=== PATIENT | female | born 1955 | race Caucasian/White ===

== ENCOUNTER → 2016-06-08 | Outpatient (REF) | payer MEDICARE ==
[2016-06-08 13:26] LABS: INR 2.46
== END ==
LOC: M SFHCPLAZ 10:57
PROVIDERS: ATTEND Family Medicine
DX: Z79.01 Long term (current) use of anticoagulants (principal)

== ENCOUNTER → 2016-12-05 | Outpatient (CLI) | payer MEDICARE ==
[2016-12-05 10:08] LABS: BASO % 0.4 % (0.0-1.0); EOS # 0.2 K/mm3 (0.0-0.50); EOS % 3.2 % (0.0-3.0); LARGE UNSTAINED CELL # 0.1 K/mm3 (0.0-0.4); LARGE UNSTAINED CELL % 2.2 % (0.0-4.0); LYMPH # 1.7 K/mm3 (1.5-4.5); LYMPH % 25.6 % (24.0-44.0); MEAN CORPUSCULAR HEMOGLOBIN 30.8 pg (27.0-33.0); MEAN CORPUSCULAR HGB CONC 32.5 g/dl (32.0-36.5); MONO # 0.4 K/mm3 (0.0-0.8); MONO % 7.1 % (0.0-5.0); NEUTROPHILS # 3.7 K/mm3 (1.8-7.7); NEUTROPHILS % 61.5 % (36.0-66.0); PLATELET COUNT, AUTOMATED 205 k/mm3 (150-450)
[2016-12-05 10:14] LABS: INR 1.66
[2016-12-05 10:31] LABS: ALBUMIN 3.5 GM/DL (3.2-5.2); ALBUMIN/GLOBULIN RATIO 1.09 (1.00-1.93); ALKALINE PHOSPHATASE 58 U/L (45-117); ALT/SGPT 19 U/L (12-78); ANION GAP 6 MEQ/L (8-16); AST/SGOT 13 U/L (15-37); BILIRUBIN,TOTAL 0.3 MG/DL (0.2-1.0); BLOOD UREA NITROGEN 14 MG/DL (7-18); CALCIUM LEVEL 8.3 MG/DL (8.8-10.2); CARBON DIOXIDE LEVEL 30 MEQ/L (21-32); CHLORIDE LEVEL 107 MEQ/L (98-107); CREATININE FOR GFR 0.68 MG/DL (0.55-1.02); GLOMERULAR FILTRATION RATE > 60.0 (>45); GLUCOSE, FASTING 98 MG/DL (80-110); POTASSIUM SERUM 4.1 MEQ/L (3.5-5.1); SODIUM LEVEL 143 MEQ/L (136-145); TOTAL PROTEIN 6.7 GM/DL (6.4-8.2)
[2016-12-05 11:32] LABS: ERYTHROCYTE SEDIMENTATION RATE 24 mm/hr (0-30)
== END ==
LOC: M WUC 09:11
PROVIDERS: ATTEND Family Medicine
DX: I10 Essential (primary) hypertension (principal); D68.61 Antiphospholipid syndrome; M32.9 Systemic lupus erythematosus, unspecified; R73.01 Impaired fasting glucose

== ENCOUNTER → 2016-12-19 | Outpatient (CLI) | payer MEDICARE ==
[2016-12-19 17:40] LABS: INR 2.75
== END ==
LOC: M WUC 14:46
PROVIDERS: ATTEND Family Medicine
DX: Z79.01 Long term (current) use of anticoagulants (principal)

== ENCOUNTER → 2017-01-02 | Outpatient (CLI) | payer MEDICARE ==
[2017-01-02 17:24] LABS: INR 1.52
== END ==
LOC: M WUC 14:09
PROVIDERS: ATTEND Family Medicine
DX: I48.2 Chronic atrial fibrillation (principal)

== ENCOUNTER → 2017-02-09 | Outpatient (CLI) | payer MEDICARE ==
--- NOTE | 2017-02-09 09:12 | REP ---
MAXILLOFACIAL CT WITHOUT CONTRAST: HISTORY: Chronic pansinusitis. COMPARISON: 03/27/2007. Minimal mucosal thickening is present in the sphenoid sinuses. The remaining sinuses are clear. The ostiomeatal units are patent. There is minimal deviation of the nasal septum to the right. A spur is present arising from the left side of the nasal septum. The cribriform plate, medial turner of the orbits and optic canals are intact. The carotid canals form a segment of the posterolateral turner of the sphenoid sinus. IMPRESSION: Sinus mucosal thickening as described above. Signed by Alberto Ha MD 02/09/2017 09:28 A
== END ==
LOC: M RAD 07:55
PROVIDERS: ATTEND Otolaryngology
DX: J34.89 Other specified disorders of nose and nasal sinuses (principal)

== ENCOUNTER → 2017-03-07 | Outpatient (CLI) | payer MEDICARE ==
--- NOTE | 2017-03-09 00:27 | SLEEPHOME ---
DATE OF PROCEDURE: 03/07/2017 ORDERED BY: Dr. Villafana Diagnostic home sleep testing was performed due to concern for the obstructive sleep apnea syndrome. For testing, a NOX-T3 respiratory monitoring device was used. Continuous record was made of pulse, oxygen saturation, air flow, chest and abdominal strain and body position. 9 hours and 59 minutes of data were reviewed. Of these, 5 hours and 23 minutes were marked as time in bed. During the interval marked time in bed, there were 57 respiratory events identified of 10 seconds in duration or greater for a respiratory event index of 10.6. The events were more frequently obstructive, though 11 central and 3 mixed apneas were seen. Baseline pulse rate 69 beats per minute. Pulse rate ranged as high as 170 beats per minute. Baseline saturation 92%. Lowest oxygen saturation reliably recorded 85%. Testing was performed in both the supine and nonsupine positions. IMPRESSION: Abnormal home sleep testing with repetitive respiratory events and oxygen desaturation to 85% with a respiratory event index of 10.6 is consistent with the obstructive sleep apnea syndrome. RECOMMENDATION: The patient should be encouraged to undergo a formal sleep evaluation and in laboratory pressure titration.
== END ==
LOC: M SLEEP HO 12:28
PROVIDERS: ATTEND Family Medicine
DX: G47.33 Obstructive sleep apnea (adult) (pediatric) (principal)

== ENCOUNTER → 2017-03-23 | Outpatient (CLI) | payer MEDICARE | LOC: M WHC 14:17 | DX: Z12.31 Encounter for screening mammogram for malignant neoplasm of breast (principal); Z80.3 Family history of malignant neoplasm of breast; Z80.0 Family history of malignant neoplasm of digestive organs; Z78.0 Asymptomatic menopausal state | CPT/HCPCS: G0202 ==

== ENCOUNTER → 2017-04-30 | Outpatient (REF) | payer MEDICARE | LOC: M SFHCPLAZ 10:13 | DX: M32.9 Systemic lupus erythematosus, unspecified (principal) | CPT/HCPCS: 36415 ==

== ENCOUNTER → 2017-05-13 | Outpatient (CLI) | payer MEDICARE | LOC: M SLEEP 20:00 | DX: G47.33 Obstructive sleep apnea (adult) (pediatric) (principal) | CPT/HCPCS: 95811 ==

== ENCOUNTER → 2017-07-30 | Outpatient (CLI) | payer MEDICARE ==
[2017-07-30 17:01] LABS: PROTHROMBIN TIME 34.3 SECONDS (12.4-14.5)
[2017-07-30 17:02] LABS: PARTIAL THROMBOPLASTIN TIME 73.6 SECONDS (26.8-37.9)
[2017-07-30 17:03] LABS: APPEARANCE, URINE CLEAR (CLEAR); BACTERIA, URINE AUTO NEGATIVE (NEGATIVE); BILIRUBIN, URINE AUTO NEGATIVE (NEGATIVE); BLOOD, URINE BLOOD NEGATIVE (NEGATIVE); COLOR, URINE YELLOW (YELLOW); ESTIMATED AVERAGE GLUCOSE 114 MG/DL (60-110); GLUCOSE, URINE (UA) AUTO NEGATIVE (NEGATIVE); HEMOGLOBIN A1c 5.6 %; KETONE, URINE AUTO NEGATIVE (NEGATIVE); LEUKOCYTE ESTERASE, URINE AUTO NEGATIVE (NEGATIVE); MUCUS, URINE SMALL (NEGATIVE); NITRITE, URINE AUTO NEGATIVE (NEGATIVE); PROTEIN, URINE AUTO NEGATIVE (NEGATIVE); RBC, URINE AUTO 5 /HPF (0-3); SPECIFIC GRAVITY URINE AUTO 1.018 (1.002-1.035); SQUAMOUS EPITHELIAL CELL UR AU 0 /HPF (0-6); WBC, URINE AUTO 0 /HPF (0-3)
[2017-07-30 17:04] LABS: VITAMIN B12 LEVEL 378 PG/ML (247-911)
[2017-07-30 17:32] LABS: BASO % 0.6 % (0.0-1.0); EOS # 0.1 10^3/uL (0.0-0.50); EOS % 1.1 % (0.0-3.0); HEMATOCRIT 39.1 % (36.0-47.0); HEMOGLOBIN 12.7 g/dl (12.0-15.5); IMMATURE GRANULOCYTE % 0.1 % (0-3.0); LYMPH # 2.1 10^3/uL (1.5-4.5); MEAN CORPUSCULAR HEMOGLOBIN 30.7 pg (27.0-33.0); MEAN CORPUSCULAR HGB CONC 32.5 g/dl (32.0-36.5); MEAN CORPUSCULAR VOLUME 94.4 fl (80.0-96.0); MONO # 0.6 10^3/uL (0.0-0.8); NEUTROPHILS # 4.3 10^3/uL (1.8-7.7); NEUTROPHILS % 60.2 % (36.0-66.0); PLATELET COUNT, AUTOMATED 214 10^3/uL (150-450); RED BLOOD COUNT 4.14 10^6/uL (4.00-5.40); RED CELL DISTRIBUTION WIDTH 13.4 % (11.5-14.5); RETIC HEMOGLOBIN EQUIVALENT 34.3 pg (24-36); RETICULOCYTE # 68.7 10^9/L (17-77); RETICULOCYTE % 1.7 % (0.5-1.5); WHITE BLOOD COUNT 7.1 10^3/uL (4.0-10.0)
[2017-07-30 18:09] LABS: MALB URINE SIEMENS 14.8 MG/L; MAU/CREAT RATIO 12.6 MCG/MG (0.0-30.0)
== END ==
LOC: M WUC 10:45
DX: M32.9 Systemic lupus erythematosus, unspecified (principal); R73.01 Impaired fasting glucose; I10 Essential (primary) hypertension; Z79.01 Long term (current) use of anticoagulants
CPT/HCPCS: 82607

== ENCOUNTER → 2017-09-05 | Outpatient (CLI) | payer MEDICARE ==
[2017-09-05 12:17] LABS: INR 1.31; PROTHROMBIN TIME 16.6 SECONDS (12.4-14.5)
[2017-09-05 12:18] LABS: PARTIAL THROMBOPLASTIN TIME 35.2 SECONDS (26.8-37.9)
== END ==
LOC: M WUC 09:29
DX: D68.61 Antiphospholipid syndrome (principal)
CPT/HCPCS: 85610

== ENCOUNTER → 2017-09-14 | Outpatient (CLI) | payer MEDICARE ==
[2017-09-14 09:41] LABS: BASO % 0.5 % (0.0-1.0); EOS # 0.1 10^3/uL (0.0-0.50); EOS % 1.8 % (0.0-3.0); HEMATOCRIT 39.3 % (36.0-47.0); HEMOGLOBIN 12.7 g/dl (12.0-15.5); IMMATURE GRANULOCYTE % 0.2 % (0-3.0); LYMPH # 1.8 10^3/uL (1.5-4.5); LYMPH % 29.5 % (24.0-44.0); MEAN CORPUSCULAR HEMOGLOBIN 30.4 pg (27.0-33.0); MEAN CORPUSCULAR HGB CONC 32.3 g/dl (32.0-36.5); MONO # 0.6 10^3/uL (0.0-0.8); MONO % 9.4 % (0.0-5.0); NEUTROPHILS # 3.6 10^3/uL (1.8-7.7); NEUTROPHILS % 58.6 % (36.0-66.0); PLATELET COUNT, AUTOMATED 233 10^3/uL (150-450); RED BLOOD COUNT 4.18 10^6/uL (4.00-5.40); RED CELL DISTRIBUTION WIDTH 13.4 % (11.5-14.5); WHITE BLOOD COUNT 6.2 10^3/uL (4.0-10.0)
[2017-09-14 09:56] LABS: ANION GAP 8 MEQ/L (8-16); BLOOD UREA NITROGEN 8 MG/DL (7-18); CALCIUM LEVEL 8.6 MG/DL (8.8-10.2); CARBON DIOXIDE LEVEL 30 MEQ/L (21-32); CHLORIDE LEVEL 105 MEQ/L (98-107); CREATININE FOR GFR 0.69 MG/DL (0.55-1.30); GLOMERULAR FILTRATION RATE > 60.0 (>45); GLUCOSE, FASTING 109 MG/DL (70-100); POTASSIUM SERUM 4.5 MEQ/L (3.5-5.1); SODIUM LEVEL 143 MEQ/L (136-145)
== END ==
LOC: M WUC 08:16
DX: R53.83 Other fatigue (principal)
CPT/HCPCS: 80048

== ENCOUNTER → 2017-09-24 | Outpatient (CLI) | payer MEDICARE ==
[2017-09-24 12:25] LABS: INR 1.28; PROTHROMBIN TIME 16.2 SECONDS (12.1-14.4)
[2017-09-24 12:26] LABS: PARTIAL THROMBOPLASTIN TIME 34.5 SECONDS (25.4-37.6)
== END ==
LOC: M WUC 09:01
DX: I63.9 Cerebral infarction, unspecified (principal)
CPT/HCPCS: 85610

== ENCOUNTER → 2017-10-05 | Outpatient (CLI) | payer MEDICARE ==
[2017-10-05 13:07] LABS: PROTHROMBIN TIME 24.9 SECONDS (12.1-14.4)
[2017-10-05 13:08] LABS: PARTIAL THROMBOPLASTIN TIME 46.7 SECONDS (25.4-37.6)
== END ==
LOC: M WUC 09:04
DX: I63.9 Cerebral infarction, unspecified (principal)
CPT/HCPCS: 85610

== ENCOUNTER → 2017-11-08 | Outpatient (CLI) | payer MEDICARE ==
[2017-11-08 12:49] LABS: BASO % 0.7 % (0.0-1.0); EOS # 0.1 10^3/uL (0.0-0.50); HEMATOCRIT 39.4 % (36.0-47.0); HEMOGLOBIN 12.8 g/dl (12.0-15.5); IMMATURE GRANULOCYTE % 0.3 % (0-3.0); LYMPH # 1.5 10^3/uL (1.5-4.5); LYMPH % 25.5 % (24.0-44.0); MEAN CORPUSCULAR HEMOGLOBIN 30.9 pg (27.0-33.0); MEAN CORPUSCULAR HGB CONC 32.5 g/dl (32.0-36.5); MEAN CORPUSCULAR VOLUME 95.2 fl (80.0-96.0); MONO # 0.6 10^3/uL (0.0-0.8); MONO % 9.5 % (0.0-5.0); NEUTROPHILS # 3.6 10^3/uL (1.8-7.7); PLATELET COUNT, AUTOMATED 202 10^3/uL (150-450); RED BLOOD COUNT 4.14 10^6/uL (4.00-5.40); RED CELL DISTRIBUTION WIDTH 13.3 % (11.5-14.5); RETIC HEMOGLOBIN EQUIVALENT 34.4 pg (24-36); RETICULOCYTE # 62.9 10^9/L (17-77); RETICULOCYTE % 1.5 % (0.5-1.5); WHITE BLOOD COUNT 5.8 10^3/uL (4.0-10.0)
[2017-11-08 13:00] LABS: HEMATOCRIT 39.4 % (36.0-47.0)
[2017-11-08 13:01] LABS: INR 3.45; PROTHROMBIN TIME 35.6 SECONDS (12.1-14.4)
[2017-11-08 13:02] LABS: PARTIAL THROMBOPLASTIN TIME 54.9 SECONDS (25.4-37.6)
[2017-11-08 13:33] LABS: ALBUMIN 3.8 GM/DL (3.2-5.2); ALBUMIN/GLOBULIN RATIO 1.15 (1.00-1.93); ALKALINE PHOSPHATASE 62 U/L (45-117); ALT/SGPT 20 U/L (12-78); ANION GAP 9 MEQ/L (8-16); AST/SGOT 15 U/L (7-37); BILIRUBIN,TOTAL 0.4 MG/DL (0.2-1.0); BLOOD UREA NITROGEN 9 MG/DL (7-18); CALCIUM LEVEL 8.6 MG/DL (8.8-10.2); CARBON DIOXIDE LEVEL 28 MEQ/L (21-32); CHLORIDE LEVEL 106 MEQ/L (98-107); GLOMERULAR FILTRATION RATE > 60.0 (>45); GLUCOSE, FASTING 103 MG/DL (70-100); POTASSIUM SERUM 4.2 MEQ/L (3.5-5.1); SODIUM LEVEL 143 MEQ/L (136-145); TOTAL PROTEIN 7.1 GM/DL (6.4-8.2)
[2017-11-08 14:03] LABS: VITAMIN B12 LEVEL 634 PG/ML (247-911)
[2017-11-08 14:23] LABS: ESTIMATED AVERAGE GLUCOSE 108 MG/DL (60-110); HEMOGLOBIN A1c 5.4 %
[2017-11-09 10:39] LABS: PRETREATED FOLATE FOR RBCFOL 20.9 NG/ML
[2017-11-09 14:46] LABS: INSULIN LEVEL 9.6 uIU/mL (2.6-24.9)
== END ==
LOC: M WUC 10:07
DX: E53.8 Deficiency of other specified B group vitamins (principal); R73.01 Impaired fasting glucose
CPT/HCPCS: 83525

== ENCOUNTER → 2017-12-20 | Outpatient (CLI) | payer MEDICARE ==
[2017-12-20 18:16] LABS: INR 2.74; PROTHROMBIN TIME 29.6 SECONDS (12.1-14.4)
== END ==
LOC: M WUC 15:28
DX: E53.8 Deficiency of other specified B group vitamins (principal); I63.9 Cerebral infarction, unspecified
CPT/HCPCS: 85610

== ENCOUNTER → 2018-01-22 | Outpatient (CLI) | payer MEDICARE ==
[2018-01-22 13:54] LABS: INR 2.29; PROTHROMBIN TIME 25.7 SECONDS (12.1-14.4)
[2018-01-22 13:56] LABS: PARTIAL THROMBOPLASTIN TIME 49.7 SECONDS (25.4-37.6)
== END ==
LOC: M WUC 10:40
DX: D68.61 Antiphospholipid syndrome (principal)
CPT/HCPCS: 85610

== ENCOUNTER → 2018-02-25 | Outpatient (CLI) | payer MEDICARE ==
[2018-02-25 13:00] LABS: INR 1.95; PROTHROMBIN TIME 22.6 SECONDS (12.1-14.4)
[2018-02-25 13:01] LABS: PARTIAL THROMBOPLASTIN TIME 42.8 SECONDS (25.4-37.6)
== END ==
LOC: M WUC 09:57
DX: D68.61 Antiphospholipid syndrome (principal)
CPT/HCPCS: 85610

== ENCOUNTER → 2018-04-08 | Outpatient (CLI) | payer MEDICARE ==
--- NOTE | 2018-04-08 13:58 | REP ---
MRA BRAIN WITHOUT CONTRAST: HISTORY: Right leg weakness. 3D [id number] MR angiography was performed at the level of the [place]. There is no aneurysm or arteriovenous malformation. Mild atherosclerotic disease involves the cavernous and supraclinoid internal carotid arteries. Major intracranial vessels are patent. The left vertebral artery is dominant. IMPRESSION: 1. There is no aneurysm or arteriovenous malformation. 2. Atherosclerotic disease as described above. Electronically Signed by Alberto Ha MD 04/08/2018 02:03 P
--- NOTE | 2018-04-08 14:10 | REP ---
MR BRAIN WITHOUT CONTRAST: HISTORY: Right leg weakness. Areas of increased signal intensity on T2 weighted images are present in the periventricular and subcortical white matter. This represents small vessel ischemic disease. There is no intraparenchymal hemorrhage, infarct, mass, or midline shift. The ventricular system is normal in appearance. The cortical sulci are dilated consistent with minimal volume loss. There is no extracerebral collection. Mucosal thickening is present in the sphenoid sinus. IMPRESSION: 1. Small vessel ischemic disease. 2. Minimal volume loss. Electronically Signed by Alberto Ha MD 04/08/2018 02:11 P
== END ==
LOC: M RAD 12:29
PROVIDERS: ATTEND Family Medicine
DX: R29.898 Other symptoms and signs involving the musculoskeletal system (principal); R90.82 White matter disease, unspecified

== ENCOUNTER → 2018-04-12 | Outpatient (CLI) | payer MEDICARE ==
[2018-04-12 16:46] LABS: BASO % 0.5 % (0.0-1.0); EOS # 0.1 10^3/uL (0.0-0.50); EOS % 1.1 % (0.0-3.0); HEMATOCRIT 36.9 % (36.0-47.0); LYMPH # 2.5 10^3/uL (1.5-4.5); LYMPH % 29.2 % (24.0-44.0); MEAN CORPUSCULAR HEMOGLOBIN 30.5 pg (27.0-33.0); MEAN CORPUSCULAR HGB CONC 32.5 g/dl (32.0-36.5); MEAN CORPUSCULAR VOLUME 93.9 fl (80.0-96.0); MONO # 0.5 10^3/uL (0.0-0.8); MONO % 6.4 % (0.0-5.0); NEUTROPHILS # 5.3 10^3/uL (1.8-7.7); NEUTROPHILS % 62.4 % (36.0-66.0); PLATELET COUNT, AUTOMATED 250 10^3/uL (150-450); RED BLOOD COUNT 3.93 10^6/uL (4.00-5.40); WHITE BLOOD COUNT 8.5 10^3/uL (4.0-10.0)
[2018-04-12 16:49] LABS: ALBUMIN 3.8 GM/DL (3.2-5.2); ALT/SGPT 25 U/L (12-78); BILIRUBIN,TOTAL 0.3 MG/DL (0.2-1.0); BLOOD UREA NITROGEN 14 MG/DL (7-18); CALCIUM LEVEL 8.9 MG/DL (8.8-10.2); CARBON DIOXIDE LEVEL 27 MEQ/L (21-32); CHLORIDE LEVEL 105 MEQ/L (98-107); COMPLEMENT C3 115 MG/DL (90-180); COMPLEMENT C4 26 MG/DL (10-40); CREATININE FOR GFR 0.78 MG/DL (0.55-1.30); GLOMERULAR FILTRATION RATE > 60.0 (>45); GLUCOSE, FASTING 129 MG/DL (70-100); POTASSIUM SERUM 3.7 MEQ/L (3.5-5.1); SODIUM LEVEL 139 MEQ/L (136-145)
[2018-04-12 17:25] LABS: INR 1.67
[2018-04-12 17:26] LABS: PARTIAL THROMBOPLASTIN TIME 41.5 SECONDS (25.4-37.6)
== END ==
LOC: M WUC 14:35
PROVIDERS: ATTEND Family Medicine
DX: M32.9 Systemic lupus erythematosus, unspecified (principal); D68.61 Antiphospholipid syndrome

== ENCOUNTER → 2018-05-21 | Outpatient (CLI) | payer MEDICARE ==
[2018-05-21 17:34] LABS: INR 2.49; PROTHROMBIN TIME 27.4 SECONDS (12.1-14.4)
== END ==
LOC: M WUC 10:56
PROVIDERS: ATTEND Family Medicine
DX: D68.61 Antiphospholipid syndrome (principal)

== ENCOUNTER → 2018-06-27 | Outpatient (REF) | payer MEDICARE ==
[~2018-06-27] MED LIST: AMLO2.5T3 PO; B12-1CHW PO; CLOP75TA2 PO; COSE1INJ SC; HYDR200T3 PO; MULTCHW14 PO; ONDA4TAB5 PO; PANT20TA51 PO; PROP10TA56 PO; ROSU20TA4 PO; VITA-197 PO; WARF-23 PO
[2018-06-27 11:57] LABS: INR 2.26; PROTHROMBIN TIME 25.4 SECONDS (12.1-14.4)
== END ==
LOC: M LABDRAWP 09:11
PROVIDERS: ATTEND Family Medicine
DX: D68.61 Antiphospholipid syndrome (principal)
CPT/HCPCS: 36415; 85610; 85730; G0463

== ENCOUNTER 2018-07-01 21:47 | Observation (INO) | payer MEDICARE ==
[~2018-07-01] VITALS: Ht 165.1 cm; Wt 86.4 kg
[2018-07-01 23:20] VITALS: BP 177/74
[2018-07-02] MEDS ORDERED: NITROGLYCERIN 0.4 MG SUBL TABLET SL STA (00:20)
[2018-07-02 00:50] LABS: HEMATOCRIT 37.1 % (36.0-47.0); MEAN CORPUSCULAR HEMOGLOBIN 30.5 pg (27.0-33.0); MEAN CORPUSCULAR HGB CONC 32.3 g/dl (32.0-36.5); MEAN CORPUSCULAR VOLUME 94.2 fl (80.0-96.0); PLATELET COUNT, AUTOMATED 216 10^3/uL (150-450); RED BLOOD COUNT 3.94 10^6/uL (4.00-5.40); WHITE BLOOD COUNT 7.5 10^3/uL (4.0-10.0)
[2018-07-02] MEDS ORDERED: ROSU20TA4 PO (01:10)
[2018-07-02] MEDS ORDERED: MULTCHW14 PO (01:10)
[2018-07-02] MEDS ORDERED: AMLO2.5T3 PO (01:10)
[2018-07-02] MEDS ORDERED: COSE1INJ SC (01:10)
[2018-07-02] MEDS ORDERED: CLOP75TA2 PO (01:10)
[2018-07-02] MEDS ORDERED: B12-1CHW PO (01:10)
[2018-07-02] MEDS ORDERED: HYDR200T3 PO (01:10)
[2018-07-02] MEDS ORDERED: VITA-197 PO (01:10)
[2018-07-02] MEDS ORDERED: ONDA4TAB5 PO (01:10)
[2018-07-02] MEDS ORDERED: PROP10TA56 PO (01:10)
[2018-07-02] MEDS ORDERED: WARF-23 PO (01:10)
[2018-07-02] MEDS ORDERED: PANT20TA51 PO (01:10)
[2018-07-02 01:20] LABS: ALBUMIN 3.7 GM/DL (3.2-5.2); ALT/SGPT 18 U/L (12-78); BILIRUBIN,TOTAL 0.3 MG/DL (0.2-1.0); BLOOD UREA NITROGEN 12 MG/DL (7-18); CALCIUM LEVEL 8.5 MG/DL (8.8-10.2); CARBON DIOXIDE LEVEL 27 MEQ/L (21-32); CHLORIDE LEVEL 108 MEQ/L (98-107); CK-MB VALUE MASS < 1.0 NG/ML (<3.6); CPK CREATINE PHOSPHOKINASE 74 U/L (26-192); CREATININE FOR GFR 0.74 MG/DL (0.55-1.30); GLOMERULAR FILTRATION RATE > 60.0 (>45); GLUCOSE, FASTING 120 MG/DL (70-100); MAGNESIUM LEVEL 2.2 MG/DL (1.8-2.4); MB/CK RELATIVE INDEX 1.35 (< OR =4); POTASSIUM SERUM 3.6 MEQ/L (3.5-5.1); SODIUM LEVEL 142 MEQ/L (136-145); TOTAL PROTEIN 7.2 GM/DL (6.4-8.2)
[2018-07-02 02:00] VITALS: BP 128/59
[2018-07-02] MEDS ORDERED: NITROGLYCERIN 2% OINT 1 GM *U/D* PKT TOP ONE (02:00)
--- NOTE | 2018-07-02 02:07 | HPEPDOC ---
[facility] Medical History & Physical Date of Admission Jul 02, 2018 Primary Care Physician: Jerald Villafana M.D. Attending Physician: Jerald Villafana M.D. History and Physical CHIEF COMPLAINT: Chest Pain HISTORY OF PRESENT ILLNESS: Patient is a 62-year-old female with past medical history of hypertension, lupus, rheumatoid arthritis, antiphospholipid lipid syndrome and previous history of chest pain status post stress test one year prior is transferred here from [facility] for chest pain. Patient reported she has been having chest pain for several days and worsened today described as midsternal heavy pressure that waxes and wanes. Symptoms worsened today associated with dizziness, room spinning, nausea and some chills. Of note, she has had chest pain in the past and has had a normal cardiac cath one year prior reportedly. In the ER at [facility]. troponins were negativex2 and EKG show normal sinus rhythm with reported resolution of chest pain after one nitroglycerin. On arrival here she was also noted to have some chest pain but improved shortly after. She denies any other complaints apart from chest pressure at this time although she is much more comfortable. She stated that she has fibromyalgia and does have diffuse pain normally and that her chest feels sore at this time worse with palpation. PAST MEDICAL HISTORY: 1. Chest pain status post stress test one year prior s/p stress and normal catherization. 2. Rheumatoid Arthritis. 3. SLE. 4. Fibromyalgia PAST SURGICAL HISTORY: 1. Current catheterization. SOCIAL HISTORY: Former smoker. Denies alcohol or illicit drug use. FAMILY HISTORY: Sister with CVA and rheumatoid arthritis ALLERGIES: Please see below. REVIEW OF SYSTEMS: 10 point review of system negative except as stated in HPI HOME MEDICATIONS: Please see below. PHYSICAL EXAMINATION: General: No acute distress, Alert Eyes: Normal sclera, EOMI, [place] HENT: Atraumatic, neck supple, moist mucous membranes Cardiovascular: Normal rate, normal rhythm. No murmurs appreciated. Pulmonary: Clear to auscultation b/l, no wheezing GI: Soft, nontender, nondistended Skin: Warm and dry Neuro: CN grossly intact. No focal deficits. Strengths equal b/l. Psych: oriented x 3 LABORATORY DATA: See below. MICROBIOLOGY: Please see below. ASSESSMENT AND PLAN: 1. Chest pain - Troponin negative x3 (2 from [facility], 1 here). Unsure if there is a costocondritis or fibromyalgia component. - showed no ischemic changes. - Chest pain currently improved. - Repeat one in AM. - Pain control. - may need repeat stress test. Consider discussing with her collar closer lockstitch in AM. - Obtain ECHO. 2. SLE - resume home medications 3. RA/ Fibromyalgia - Resume home medications. Patient is high risk due to chest pain need to rule out ACS Estimated length of stay likely less than 2 days with expected disposition to home. Vital Signs Vital Signs Date Time Temp Pulse Resp B/P (MAP) Pulse Ox O2 Delivery O2 Flow Rate FiO2 07/02/18 00:33 146/69 07/01/18 23:20 97.6 62 18 94 Laboratory Data Labs 24H Laboratory Tests 2 07/02/18 00:42: Nucleated Red Blood Cells % (auto) 0.0, Anion Gap 7L, Glomerular Filtration Rate > 60.0, Blood Urea Nitrogen 12, Creatinine 0.74, Sodium Level 142, Potassium Level 3.6, Chloride Level 108H, Carbon Dioxide Level 27, Calcium Level 8.5L, Aspartate Amino Transf (AST/SGOT) 18, Alanine Aminotransferase (ALT/SGPT) 18, Total Creatine Kinase 74, Alkaline Phosphatase 58, Total Bilirubin 0.3, Total Protein 7.2, Albumin 3.7, Magnesium Level 2.2, Creatine Kinase MB < 1.0, Creatine Kinase MB Relative Index 1.35, Albumin/Globulin Ratio 1.06 CBC/BMP Laboratory Tests 07/02/18 00:42 Red Blood Count 3.94 L, Mean Corpuscular Volume 94.2, Mean Corpuscular Hemoglobin 30.5, Mean Corpuscular Hemoglobin Concent 32.3, Red Cell Distribution Width 12.9, Calcium Level 8.5 L, Aspartate Amino Transf (AST/SGOT) 18, Alanine Aminotransferase (ALT/SGPT) 18, Total Creatine Kinase 74, Alkaline Phosphatase 58, Total Bilirubin 0.3, Total Protein 7.2, Albumin 3.7 Home Medications Scheduled (Multivitamin Gummies Adul) 1 Chw Chw, 1 CHW PO DAILY Amlodipine Besylate (Amlodipine Besylate) 2.5 Mg Tablet, 2.5 MG PO QPM TAKES AT DINNERTIME Cholecalciferol (Vitamin D3 Gummies) 1,000 Unit Chw, 1,000 UNIT PO DAILY Clopidogrel Bisulfate (Clopidogrel) 75 Mg Tablet, 75 MG PO DAILY TAKES AT LUNCHTIME Hydroxychloroquine Sulfate (Hydroxychloroquine Sulfate) 200 Mg Tablet, 200 MG PO BID Mecobalamin ([id number]) 1 Mg Chw, 1 MG PO DAILY Pantoprazole Sodium (Pantoprazole Sodium) 20 Mg Tablet.dr, 20 MG PO BID Propranolol HCl (Propranolol HCl) 10 Mg Tablet, 10 MG PO BID Rosuvastatin Calcium (Rosuvastatin Calcium) 20 Mg Tablet, 20 MG PO QHS Secukinumab (Cosentyx Pen (2 Pens)) 150 Mg/1 Ml Pen.injctr, 300 MG SC MTHLY TAKES ON THE OF EACH MONTH Warfarin Sodium (Warfarin Sodium) 5 Mg Tablet, 5 MG PO QPM TAKES AT DINNERTIME Scheduled PRN Ondansetron HCl (Ondansetron HCl) 4 Mg Tablet, 4 MG PO Q6H PRN for NAUSEA Allergies Coded Allergies: fluticasone (Unverified Allergy, Intermediate, nose bleed, 07/02/18) CARLOS DE LA O MD Jul 02, 2018 02:07
[2018-07-02 02:39] VITALS: BP 128/59
[2018-07-02] MEDS: ONDANSETRON 4 MG TAB (S0181) PO PRN ×2 (02:43→08:47)
[2018-07-02 06:00] VITALS: BP 119/59
[2018-07-02] MEDS ORDERED: ASPIRIN 81 MG ENTERIC TAB PO SCH (09:00)
[2018-07-02] MEDS ORDERED: HYDROXYCHLOROQUINE 200 MG TAB PO SCH (09:00)
[2018-07-02 10:00] VITALS: BP 117/62
[2018-07-02] MEDS ORDERED: ACETAMINOPHEN TAB 650MG DOSE (2X325MG) PO PRN (10:15)
--- NOTE | 2018-07-02 11:40 | IPNPDOC ---
Subjective Date Seen The patient was seen on 07/02/18. Subjective Chief Complaint/HPI Pt this morning with her dgt and grandson at bedside. She states that this morning she is feeling better than she has but just not herself. She reports that Sunday she had chest pain and mid back pain, that came and went through the day, she thought this was heartburn and so she just rested through the day. Her symptoms resolved. She states on Sunday she was feeling tired until mid when she went upstairs to put a pillowcase on a pillow when she became dizzy, weak, had difficulty catching her breath, and felt very hot, sweaty, nausea. She isn't sure if she had CP during this time, but her dgt states that she did. Her dgt st ates that her father, the pts told her she was screaming as if in agony from the chest pain. The pt tells me this morning she got up out of bed for a moment and again began to feel hot, have chest pain and had some SOB assoc with this, her dgt reports that she witnessed this happening this morning. Pt states she got back in bed and her symptoms resolved. Pt reports abn Stress test in August 2017, sent for Cath which was Neg. She reports Dr Pardo took her off Plavix but Dr Villafana put her back on it because he felt she was high risk. Her dgt reports that her BP yest was 177/74 and that it was elevated in the office when she saw Dr Villafana last week for a routine OV. She wants to know why her BP is so elevated. She wants to know why her mom hasn't been tested for a stroke with a BP that elevated. Both the patient and her dgt request that an echocardiogram is done right away. General: Reports: Fatigue Constitutional: Reports: Other (diaphoretic); Denies: Chills, Fever ENT: Denies: Head Aches Pulmonary: Reports: Dyspnea; Denies: Cough Cardiovascular: Reports: Chest Pain, Lt Headedness; Denies: Palpitations, Orthopnea, Paroxysmal Noc. Dyspnea Gastrointestinal: Reports: Nausea; Denies: Vomiting, Diarrhea Neurological: Reports: Weakness Psych: Reports: Mood Normal Objective Physical Examination General Exam: Positive: Alert, No Acute Distress; Negative: Cooperative ENT Exam: Positive: Mucous membr. moist/pink Neck Exam: Negative: Supple Chest Exam: Positive: Clear to auscultation, Normal air movement, Other (TTP with palpation over the ant chest wall sternally, substernally and on the right) Heart Exam: Positive: Rate Normal, Normal S1, Normal S2 Abdomen Exam: Positive: Normal bowel sounds, Soft; Negative: Tenderness Extremity Exam: Negative: Edema Neuro Exam: Positive: Normal Speech Psych Exam: Negative: Mood NL (agitated, irritable, aggressive, dgt at bedside more so, pt seemed to have an increase in her agitiation assoc with this) Assessment /Plan Problems (1) Chest pain Status: Chronic Response to Treatment: Stable Discussed With: Nurse, Patient, Family with Pt Consent Problem Specific Plan: Monitor Clinically Problem Text: Review of records suggest symptoms have been present for much longer than pt reporting of Sunday. Neg Trop x 1 (2 in Gov, 1 here), Neg EKG. On chronic Coumadin and Plavix per Dr Villafana for hx CVA/APS. Neg cardiac cath 09/10 Dr Pardo. Risk of Cardiac chest pain low, anticipate d/c home with close outpt f/u with PCP. case d/w attending as pt refusing d/c. (2) SLE (systemic lupus erythematosus) Status: Chronic Response to Treatment: Stable (3) Rheumatoid arteritis Status: Chronic Response to Treatment: Stable Plan/VTE VTE Prophylaxis Ordered?: Yes VS, I&O, 24H, Fishbone Vital Signs/I&O Vital Signs Date Time Temp Pulse Resp B/P (MAP) Pulse Ox O2 Delivery O2 Flow Rate FiO2 07/02/18 10:00 97.4 79 18 117/62 (80) 96 2.0 I&O- Last 24 Hours up to 6 AM 07/02/18 06:00 Intake Total 150 ml Output Total 0 ml Balance 150 ml Laboratory Data 24H LABS Laboratory Tests 2 07/02/18 00:42: Nucleated Red Blood Cells % (auto) 0.0, Anion Gap 7L, Glomerular Filtration Rate > 60.0, Blood Urea Nitrogen 12, Creatinine 0.74, Sodium Level 142, Potassium Level 3.6, Chloride Level 108H, Carbon Dioxide Level 27, Calcium Level 8.5L, A spartate Amino Transf (AST/SGOT) 18, Alanine Aminotransferase (ALT/SGPT) 18, Total Creatine Kinase 74, Alkaline Phosphatase 58, Total Bilirubin 0.3, Total Protein 7.2, Albumin 3.7, Magnesium Level 2.2, Creatine Kinase MB < 1.0, Creatine Kinase MB Relative Index 1.35, Albumin/Globulin Ratio 1.06 07/02/18 05:23: Troponin I < 0.02 CBC/BMP Laboratory Tests 07/02/18 00:42 Red Blood Count 3.94 L, Mean Corpuscular Volume 94.2, Mean Corpuscular Hemoglobin 30.5, Mean Corpuscular Hemoglobin Concent 32.3, Red Cell Distribution Width 12.9, Calcium Level 8.5 L, Aspartate Amino Transf (AST/SGOT) 18, Alanine Aminotransferase (ALT/SGPT) 18, Total Creatine Kinase 74, Alkaline Phosphatase 58, Total Bilirubin 0.3, Total Protein 7.2, Albumin 3.7 SHAYY CARDENAS PA-C Jul 02, 2018 11:40
[2018-07-02] MEDS ORDERED: CLOPIDOGREL 75 MG TAB PO SCH (12:00)
[2018-07-02 14:00] VITALS: BP 138/87
--- NOTE | 2018-07-02 14:40 | DSES ---
DATE OF ADMISSION: 07/01/2018 DATE OF DISCHARGE: 07/02/2018 PRINCIPAL DIAGNOSIS: Noncardiac chest pain - musculoskeletal in origin. SECONDARY DIAGNOSES: Suspected esophageal spasm. History of lupus. Psoriasis. Antiphospholipid antibody status. Hypertension. HISTORY: Valarie Whitfield is a patient of Dr. Villafana's who was transferred from [facility] for atypical chest pain. Details as per history and physical from admission. HOSPITAL COURSE: Please refer to Brenda Martin's note for today. The patient had decidedly noncardiac chest pain that was reproducible by palpating her chest, was discreetly to two separate areas along the left sternal border and right upper chest with no radiation. She has been having some trouble with swallowing and atypical chest discomfort suspicious for esophageal origin. I am recommending she has outpatient workup for this. The patient passed a home safety evaluation and is stable for discharge. DISPOSITION: Patient is discharged home in improved and stable condition. She will follow-up with Dr. Villafana this or next week for further workup for possible esophageal cause for atypical chest pain. Her medicines are unchanged from before admission (it should be noted she has been prescribed prednisone that she is not taking on a scheduled basis. She takes this "when I need it" for a few days, so it is not on discharge med list). DIET: As tolerated. ACTIVITY: As tolerated. She will follow-up with Dr. Villafana this or next week.
[2018-07-02] MEDS ORDERED: WARFARIN SOD 5 MG TAB PO SCH (17:00)
[2018-07-02] MEDS ORDERED: ROSUVASTATIN 10 MG TAB (CRESTOR) PO SCH (21:00)
== END 2018-07-02 15:31 | disposition home or self-care (01) ==
LOC: M MSPAV 23:19
PROVIDERS: ADMIT Student in an Organized Health Care Education/Training Program; ATTEND Family Medicine
DX: R07.89 Other chest pain (principal); K22.4 Dyskinesia of esophagus; M32.9 Systemic lupus erythematosus, unspecified; L40.9 Psoriasis, unspecified; I10 Essential (primary) hypertension; D68.61 Antiphospholipid syndrome
CPT/HCPCS: 36415; 80053; 82550; 82553; 83735; 84484; 85027; 97161; 97530; G0378

== ENCOUNTER → 2018-07-29 | Outpatient (CLI) | payer MEDICARE ==
[2018-07-29 17:27] LABS: INR 1.94; PROTHROMBIN TIME 22.5 SECONDS (12.1-14.4)
== END ==
LOC: M WUC 15:22
PROVIDERS: ATTEND Family Medicine
DX: D68.61 Antiphospholipid syndrome (principal)

== ENCOUNTER → 2018-09-23 | Outpatient (REF) | payer MEDICARE | LOC: M SFHCPLAZ 08:27 | PROVIDERS: ATTEND Family Medicine | DX: D68.61 Antiphospholipid syndrome (principal); I10 Essential (primary) hypertension; E78.2 Mixed hyperlipidemia; Z53.8 Procedure and treatment not carried out for other reasons ==

== ENCOUNTER → 2018-09-24 | Outpatient (CLI) | payer MEDICARE ==
[~2018-09-24] MED LIST changes: -ROSU20TA4 PO; +ROSU20TA5 PO
[2018-09-24 09:57] LABS: BASO % 0.3 % (0.0-1.0); EOS # 0.1 10^3/uL (0.0-0.50); EOS % 1.8 % (0.0-3.0); HEMATOCRIT 38.4 % (36.0-47.0); HEMOGLOBIN 12.4 g/dl (12.0-15.5); LYMPH # 1.8 10^3/uL (1.5-4.5); LYMPH % 28.3 % (24.0-44.0); MEAN CORPUSCULAR HEMOGLOBIN 30.5 pg (27.0-33.0); MEAN CORPUSCULAR HGB CONC 32.3 g/dl (32.0-36.5); MEAN CORPUSCULAR VOLUME 94.3 fl (80.0-96.0); MONO # 0.6 10^3/uL (0.0-0.8); MONO % 9.5 % (0.0-5.0); NEUTROPHILS # 3.9 10^3/uL (1.8-7.7); NEUTROPHILS % 59.6 % (36.0-66.0); PLATELET COUNT, AUTOMATED 211 10^3/uL (150-450); RED BLOOD COUNT 4.07 10^6/uL (4.00-5.40); WHITE BLOOD COUNT 6.5 10^3/uL (4.0-10.0)
[2018-09-24 10:07] LABS: INR 2.08; PROTHROMBIN TIME 23.2 SECONDS (11.8-14.0)
[2018-09-24 10:08] LABS: PARTIAL THROMBOPLASTIN TIME 46.9 SECONDS (25.0-38.4)
[2018-09-24 10:33] LABS: ALBUMIN 3.6 GM/DL (3.2-5.2); ALT/SGPT 19 U/L (12-78); BILIRUBIN,TOTAL 0.4 MG/DL (0.2-1.0); BLOOD UREA NITROGEN 8 MG/DL (7-18); CALCIUM LEVEL 8.7 MG/DL (8.8-10.2); CARBON DIOXIDE LEVEL 28 MEQ/L (21-32); CHLORIDE LEVEL 108 MEQ/L (98-107); CHOLESTEROL LEVEL 127 MG/DL (<200); CHOLESTEROL RISK RATIO 2.886 (<5); COMPLEMENT C3 124 MG/DL (90-180); COMPLEMENT C4 31 MG/DL (10-40); CREATININE FOR GFR 0.82 MG/DL (0.55-1.30); FREE T4 1.18 NG/DL (0.76-1.46); GLOMERULAR FILTRATION RATE > 60.0 (>45); GLUCOSE, FASTING 106 MG/DL (70-100); HDL CHOLESTEROL 44 MG/DL (>40); LDL CHOLESTEROL 57 MG/DL (<100); NON-HDL-C 83 MG/DL; POTASSIUM SERUM 4.1 MEQ/L (3.5-5.1); SODIUM LEVEL 142 MEQ/L (136-145); TOTAL PROTEIN 6.8 GM/DL (6.4-8.2); TRIGLYCERIDES LEVEL 132 MG/DL (<150)
== END ==
LOC: M WUC 09:05
PROVIDERS: ATTEND Family Medicine
DX: D68.61 Antiphospholipid syndrome (principal); I10 Essential (primary) hypertension; E78.2 Mixed hyperlipidemia

== ENCOUNTER → 2018-11-04 | Outpatient (CLI) | payer MEDICARE ==
[2018-11-04 17:40] LABS: INR 2.81; PROTHROMBIN TIME 29.5 SECONDS (11.8-14.0)
== END ==
LOC: M WUC 11:13
PROVIDERS: ATTEND Family Medicine
DX: Z79.01 Long term (current) use of anticoagulants (principal)

== ENCOUNTER → 2018-12-10 | Outpatient (CLI) | payer MEDICARE ==
[~2018-12-10] MED LIST changes: +ONDA-83 PO; -ONDA4TAB5 PO
[2018-12-10 13:19] LABS: BASO % 0.5 % (0.0-1.0); EOS # 0.1 10^3/uL (0.0-0.5); EOS % 1.4 % (0.0-3.0); HEMATOCRIT 40.2 % (36.0-47.0); HEMOGLOBIN 12.7 g/dl (12.0-15.5); LYMPH # 1.7 10^3/uL (1.5-5.0); LYMPH % 29.5 % (24.0-44.0); MEAN CORPUSCULAR HEMOGLOBIN 30.9 pg (27.0-33.0); MEAN CORPUSCULAR HGB CONC 31.6 g/dl (32.0-36.5); MEAN CORPUSCULAR VOLUME 97.8 fl (80.0-96.0); MONO # 0.6 10^3/uL (0.0-0.8); MONO % 10.2 % (0.0-5.0); NEUTROPHILS # 3.3 10^3/uL (1.5-8.5); NEUTROPHILS % 58.2 % (36.0-66.0); PLATELET COUNT, AUTOMATED 203 10^3/uL (150-450); RED BLOOD COUNT 4.11 10^6/uL (4.00-5.40); WHITE BLOOD COUNT 5.7 10^3/uL (4.0-10.0)
[2018-12-10 13:32] LABS: INR 1.78; PROTHROMBIN TIME 20.5 SECONDS (11.8-14.0)
[2018-12-10 13:33] LABS: PARTIAL THROMBOPLASTIN TIME 39.7 SECONDS (25.0-38.4)
[2018-12-10 13:48] LABS: ALBUMIN 3.6 GM/DL (3.2-5.2); ALT/SGPT 20 U/L (12-78); BILIRUBIN,TOTAL 0.3 MG/DL (0.2-1.0); BLOOD UREA NITROGEN 12 MG/DL (7-18); CALCIUM LEVEL 8.7 MG/DL (8.8-10.2); CARBON DIOXIDE LEVEL 30 MEQ/L (21-32); CHLORIDE LEVEL 105 MEQ/L (98-107); CREATININE FOR GFR 0.77 MG/DL (0.55-1.30); GLOMERULAR FILTRATION RATE > 60.0 (>45); GLUCOSE, FASTING 91 MG/DL (70-100); SODIUM LEVEL 140 MEQ/L (136-145); TOTAL PROTEIN 6.8 GM/DL (6.4-8.2)
== END ==
LOC: M WUC 11:35
PROVIDERS: ATTEND Family Medicine
DX: Z79.01 Long term (current) use of anticoagulants (principal)

== ENCOUNTER → 2019-01-10 | Outpatient (REF) | payer MEDICARE ==
[~2019-01-10] MED LIST changes: -ONDA-83 PO; +ONDA4TAB5 PO
[2019-01-10 15:39] LABS: INR 3.71; PROTHROMBIN TIME 36.8 SECONDS (11.8-14.0)
[2019-01-10 15:40] LABS: PARTIAL THROMBOPLASTIN TIME 51.6 SECONDS (25.0-38.4)
== END ==
LOC: M SFHCPLAZ 13:31
PROVIDERS: ATTEND Nurse Practitioner Family
DX: Z51.81 Encounter for therapeutic drug level monitoring (principal); Z79.01 Long term (current) use of anticoagulants

== ENCOUNTER → 2019-01-28 | Outpatient (CLI) | payer MEDICARE ==
[2019-01-28 17:20] LABS: INR 4.13; PROTHROMBIN TIME 40.1 SECONDS (11.8-14.0)
[2019-01-28 17:22] LABS: PARTIAL THROMBOPLASTIN TIME 58.7 SECONDS (25.0-38.4)
== END ==
LOC: M WUC 12:47
PROVIDERS: ATTEND Nurse Practitioner Family
DX: Z51.81 Encounter for therapeutic drug level monitoring (principal)

== ENCOUNTER → 2019-02-10 | Outpatient (CLI) | payer MEDICARE ==
[2019-02-10 13:24] LABS: INR 2.94; PROTHROMBIN TIME 30.6 SECONDS (11.8-14.0)
[2019-02-10 13:25] LABS: PARTIAL THROMBOPLASTIN TIME 47.3 SECONDS (25.0-38.4)
== END ==
LOC: M WUC 09:23
PROVIDERS: ATTEND Nurse Practitioner Family
DX: Z51.81 Encounter for therapeutic drug level monitoring (principal)

== ENCOUNTER → 2019-03-06 | Outpatient (CLI) | payer MEDICARE ==
[2019-03-06 12:56] LABS: BASO % 0.3 % (0.0-1.0); EOS # 0.1 10^3/uL (0.0-0.5); EOS % 0.9 % (0.0-3.0); HEMATOCRIT 40.1 % (36.0-47.0); HEMOGLOBIN 12.4 g/dl (12.0-15.5); LYMPH # 1.6 10^3/uL (1.5-5.0); LYMPH % 24.6 % (24.0-44.0); MEAN CORPUSCULAR HEMOGLOBIN 30.4 pg (27.0-33.0); MEAN CORPUSCULAR HGB CONC 30.9 g/dl (32.0-36.5); MEAN CORPUSCULAR VOLUME 98.3 fl (80.0-96.0); MONO # 0.6 10^3/uL (0.0-0.8); MONO % 9.2 % (0.0-5.0); NEUTROPHILS # 4.1 10^3/uL (1.5-8.5); NEUTROPHILS % 64.5 % (36.0-66.0); PLATELET COUNT, AUTOMATED 229 10^3/uL (150-450); RED BLOOD COUNT 4.08 10^6/uL (4.00-5.40); WHITE BLOOD COUNT 6.4 10^3/uL (4.0-10.0)
[2019-03-06 13:03] LABS: INR 3.89; PROTHROMBIN TIME 38.3 SECONDS (11.8-14.0)
[2019-03-06 13:04] LABS: PARTIAL THROMBOPLASTIN TIME 52.9 SECONDS (25.0-38.4)
[2019-03-06 13:12] LABS: HEMOGLOBIN A1c 5.8 %
[2019-03-06 13:14] LABS: CREATININE,RANDOM URINE 30.4 MG/DL; TOTAL PROTEIN,RANDOM URINE 6.4 MG/DL (0.0-12.0)
[2019-03-06 13:21] LABS: ALBUMIN 3.6 GM/DL (3.2-5.2); ALT/SGPT 20 U/L (12-78); BILIRUBIN,TOTAL 0.7 MG/DL (0.2-1.0); BLOOD UREA NITROGEN 7 MG/DL (7-18); CARBON DIOXIDE LEVEL 28 MEQ/L (21-32); CHLORIDE LEVEL 106 MEQ/L (98-107); CREATININE FOR GFR 0.72 MG/DL (0.55-1.30); GLOMERULAR FILTRATION RATE > 60.0 (>45); GLUCOSE, FASTING 98 MG/DL (70-100); POTASSIUM SERUM 4.6 MEQ/L (3.5-5.1); SODIUM LEVEL 142 MEQ/L (136-145); TOTAL PROTEIN 6.8 GM/DL (6.4-8.2)
[2019-03-06 13:22] LABS: PTH INTACT 55.7 PG/ML (18.5-88.0); VITAMIN B12 LEVEL 594 PG/ML (247-911)
== END ==
LOC: M WUC 10:34
PROVIDERS: ATTEND Family Medicine
DX: M32.9 Systemic lupus erythematosus, unspecified (principal); D68.61 Antiphospholipid syndrome; E53.8 Deficiency of other specified B group vitamins; E55.9 Vitamin D deficiency, unspecified

== ENCOUNTER → 2019-03-13 | Outpatient (CLI) | payer MEDICARE ==
[2019-03-13 12:06] LABS: INR 2.56; PROTHROMBIN TIME 27.4 SECONDS (11.8-14.0)
[2019-03-13 12:07] LABS: PARTIAL THROMBOPLASTIN TIME 42.6 SECONDS (25.0-38.4)
== END ==
LOC: M WUC 09:47
PROVIDERS: ATTEND Family Medicine
DX: D68.61 Antiphospholipid syndrome (principal)

== ENCOUNTER → 2019-03-28 | Outpatient (CLI) | payer MEDICARE ==
[2019-03-28 15:06] LABS: INR 2.17; PROTHROMBIN TIME 23.9 SECONDS (11.8-14.0)
== END ==
LOC: M WUC 10:57
PROVIDERS: ATTEND Family Medicine
DX: Z79.01 Long term (current) use of anticoagulants (principal)

== ENCOUNTER → 2019-04-29 | Outpatient (CLI) | payer MEDICARE ==
[~2019-04-29] MED LIST changes: +ONDA-83 PO; -ONDA4TAB5 PO
[2019-04-29 17:22] LABS: INR 2.25; PROTHROMBIN TIME 24.7 SECONDS (11.8-14.0)
== END ==
LOC: M WUC 11:32
PROVIDERS: ATTEND Family Medicine
DX: Z51.81 Encounter for therapeutic drug level monitoring (principal)

== ENCOUNTER → 2019-05-23 | Outpatient (CLI) | payer MEDICARE ==
[2019-05-23 12:20] LABS: INR 4.41; PROTHROMBIN TIME 42.3 SECONDS (11.8-14.0)
== END ==
LOC: M WUC 10:08
PROVIDERS: ATTEND Family Medicine
DX: I63.9 Cerebral infarction, unspecified (principal)

== ENCOUNTER → 2019-06-10 | Outpatient (CLI) | payer MEDICARE ==
[2019-06-10 17:00] LABS: INR 4.09; PROTHROMBIN TIME 39.8 SECONDS (11.8-14.0)
== END ==
LOC: M WUC 12:28
PROVIDERS: ATTEND Family Medicine
DX: Z79.01 Long term (current) use of anticoagulants (principal)

== ENCOUNTER → 2019-11-10 | Outpatient (REF) | payer MEDICARE | LOC: M LABWUC 12:07 | PROVIDERS: ATTEND Internal Medicine Rheumatology | DX: L40.50 Arthropathic psoriasis, unspecified (principal) ==

== ENCOUNTER → 2019-11-17 | Outpatient (CLI) | payer MEDICARE ==
[2019-11-17 20:45] LABS: BLOOD UREA NITROGEN 10 MG/DL (7-18); CALCIUM LEVEL 8.9 MG/DL (8.8-10.2); CARBON DIOXIDE LEVEL 29 MEQ/L (21-32); CHLORIDE LEVEL 106 MEQ/L (98-107); CREATININE FOR GFR 0.84 MG/DL (0.55-1.30); GLOMERULAR FILTRATION RATE > 60.0 (>45); GLUCOSE, FASTING 92 MG/DL (70-100); POTASSIUM SERUM 4.2 MEQ/L (3.5-5.1); SODIUM LEVEL 142 MEQ/L (136-145)
== END ==
LOC: M WUC 11:13
PROVIDERS: ATTEND Physician Assistant
DX: K46.9 Unspecified abdominal hernia without obstruction or gangrene (principal)
CPT/HCPCS: 36415; 80048; G0463

== ENCOUNTER → 2020-02-24 | Outpatient (REF) | payer MEDICARE ==
[2020-02-24 14:14] LABS: BASO % 0.5 % (0.0-1.0); EOS # 0.1 10^3/uL (0.0-0.5); EOS % 1.9 % (0.0-3.0); HEMATOCRIT 40.6 % (36.0-47.0); HEMOGLOBIN 12.6 g/dl (12.0-15.5); LYMPH # 1.9 10^3/uL (1.5-5.0); LYMPH % 30.6 % (24.0-44.0); MEAN CORPUSCULAR HEMOGLOBIN 29.9 pg (27.0-33.0); MEAN CORPUSCULAR VOLUME 96.2 fl (80.0-96.0); MONO # 0.5 10^3/uL (0.0-0.8); MONO % 7.8 % (0.0-5.0); NEUTROPHILS # 3.6 10^3/uL (1.5-8.5); NEUTROPHILS % 58.9 % (36.0-66.0); PLATELET COUNT, AUTOMATED 219 10^3/uL (150-450); RED BLOOD COUNT 4.22 10^6/uL (4.00-5.40); WHITE BLOOD COUNT 6.2 10^3/uL (4.0-10.0)
[2020-02-24 14:33] LABS: HEMOGLOBIN A1c 5.8 %
[2020-02-24 14:46] LABS: ALBUMIN 3.8 GM/DL (3.2-5.2); ALT/SGPT 19 U/L (12-78); BILIRUBIN,TOTAL 0.4 MG/DL (0.2-1.0); BLOOD UREA NITROGEN 10 MG/DL (7-18); CALCIUM LEVEL 9.3 MG/DL (8.8-10.2); CARBON DIOXIDE LEVEL 30 MEQ/L (21-32); CHLORIDE LEVEL 105 MEQ/L (98-107); CHOLESTEROL LEVEL 279 MG/DL (<200); CREATININE FOR GFR 0.72 MG/DL (0.55-1.30); FERRITIN 40 NG/ML (8-252); FREE T4 1.16 NG/DL (0.76-1.46); GLOMERULAR FILTRATION RATE > 60.0 (>45); GLUCOSE, FASTING 89 MG/DL (70-100); HDL CHOLESTEROL 44 MG/DL (>40); LDL CHOLESTEROL 181 MG/DL (<100); NON-HDL-C 235 MG/DL; POTASSIUM SERUM 4.2 MEQ/L (3.5-5.1); SODIUM LEVEL 140 MEQ/L (136-145); TOTAL PROTEIN 7.3 GM/DL (6.4-8.2); TRIGLYCERIDES LEVEL 271 MG/DL (<150); VITAMIN B12 LEVEL 361 PG/ML (247-911)
[2020-02-24 14:51] LABS: ERYTHROCYTE SEDIMENTATION RATE 32 mm/hr (0-30)
== END ==
LOC: M SFHCPLAZ 12:17
PROVIDERS: ATTEND Family Medicine
DX: R73.01 Impaired fasting glucose (principal); E53.8 Deficiency of other specified B group vitamins; E78.2 Mixed hyperlipidemia; M32.9 Systemic lupus erythematosus, unspecified
CPT/HCPCS: 36415; 80053; 80061; 82607; 82728; 83036; 83525; 84439; 84443; 85025; 85652; 86140; 90682; G0008; G0463

== ENCOUNTER → 2020-08-03 | Outpatient (CLI) | payer MEDICARE ==
[2020-08-03 15:48] LABS: BASO % 0.6 % (0.0-1.0); EOS # 0.1 10^3/uL (0.0-0.5); HEMOGLOBIN 12.9 g/dl (12.0-15.5); LYMPH # 1.8 10^3/uL (1.5-5.0); LYMPH % 25.5 % (24.0-44.0); MEAN CORPUSCULAR HEMOGLOBIN 30.4 pg (27.0-33.0); MEAN CORPUSCULAR HGB CONC 31.5 g/dl (32.0-36.5); MEAN CORPUSCULAR VOLUME 96.7 fl (80.0-96.0); MONO # 0.6 10^3/uL (0.0-0.8); MONO % 9.1 % (2.0-8.0); NEUTROPHILS # 4.4 10^3/uL (1.5-8.5); NEUTROPHILS % 63.5 % (36.0-66.0); PLATELET COUNT, AUTOMATED 201 10^3/uL (150-450); RED BLOOD COUNT 4.24 10^6/uL (4.00-5.40); WHITE BLOOD COUNT 6.9 10^3/uL (4.0-10.0)
[2020-08-03 15:59] LABS: INR 1.82; PROTHROMBIN TIME 21.5 SECONDS (12.5-14.3)
[2020-08-03 16:00] LABS: PARTIAL THROMBOPLASTIN TIME 39.7 SECONDS (24.2-38.5)
[2020-08-03 16:07] LABS: HEMOGLOBIN A1c 5.5 %
[2020-08-03 16:24] LABS: C REACTIVE PROTEIN QUANTITATIV < 0.30 MG/DL (0.00-0.30); CHOLESTEROL LEVEL 181 MG/DL (<200); CHOLESTEROL RISK RATIO 3.693 (<5); CPK CREATINE PHOSPHOKINASE 77 U/L (26-192); FREE T4 1.14 NG/DL (0.76-1.46); HDL CHOLESTEROL 49 MG/DL (>40); IMMUNOGLOBULIN G 919 MG/DL (681-1648); IMMUNOGLOBULIN M 95.7 MG/DL (40-230); LDL CHOLESTEROL 97 MG/DL (<100); NON-HDL-C 132 MG/DL; TRIGLYCERIDES LEVEL 176 MG/DL (<150)
[2020-08-03 16:59] LABS: THYROID PEROXIDASE ANTIBODY > 1300.0 U/ML (<60.0)
== END ==
LOC: M WUC 11:09
PROVIDERS: ATTEND Family Medicine
DX: E78.2 Mixed hyperlipidemia (principal); R73.01 Impaired fasting glucose; E53.8 Deficiency of other specified B group vitamins; E55.9 Vitamin D deficiency, unspecified; D68.61 Antiphospholipid syndrome

== ENCOUNTER → 2022-02-21 | Outpatient (CLI) | payer MEDICARE, BC ==
[2022-02-21 17:51] LABS: BASO % 0.5 % (0.0-1.0); EOS # 0.1 10^3/uL (0.0-0.5); EOS % 0.8 % (0.0-3.0); HEMATOCRIT 39.7 % (36.0-47.0); HEMOGLOBIN 12.6 g/dl (12.0-15.5); LYMPH # 2.2 10^3/uL (1.5-5.0); LYMPH % 30.2 % (24.0-44.0); MEAN CORPUSCULAR HEMOGLOBIN 31.7 pg (27.0-33.0); MEAN CORPUSCULAR HGB CONC 31.7 g/dl (32.0-36.5); MONO # 0.6 10^3/uL (0.0-0.8); MONO % 8.4 % (2.0-8.0); NEUTROPHILS # 4.4 10^3/uL (1.5-8.5); PLATELET COUNT, AUTOMATED 223 10^3/uL (150-450); RED BLOOD COUNT 3.97 10^6/uL (4.00-5.40); WHITE BLOOD COUNT 7.4 10^3/uL (4.0-10.0)
== END ==
LOC: M WUC 14:20
PROVIDERS: ATTEND Nurse Practitioner Family
DX: E53.8 Deficiency of other specified B group vitamins (principal)

== ENCOUNTER → 2022-03-06 | Outpatient (CLI) | payer BC, MEDICARE ==
[2022-03-06 13:49] LABS: ALBUMIN 3.7 G/DL (3.2-5.2); ALKALINE PHOSPHATASE 63 U/L (46-116); ALT/SGPT 13 U/L (7.0-40); AST/SGOT 18 U/L (<34); BILIRUBIN,TOTAL 0.4 MG/DL (0.3-1.2); BLOOD UREA NITROGEN 11 MG/DL (9-23); CALCIUM LEVEL 9.2 MG/DL (8.3-10.6); CARBON DIOXIDE LEVEL 29 MMOL/L (20-31); CHLORIDE LEVEL 102 MMOL/L (98-107); CHOLESTEROL LEVEL 159 MG/DL (<200); CHOLESTEROL RISK RATIO 3.73 (<5); CPK CREATINE PHOSPHOKINASE 77 U/L (34-145); CREATININE FOR GFR 0.74 MG/DL (0.55-1.30); GLOMERULAR FILTRATION RATE > 60.0 (>45); GLUCOSE, FASTING 100 MG/DL (74-106); HDL CHOLESTEROL 42.6 MG/DL (>40); NON-HDL-C 116 MG/DL; POTASSIUM SERUM 4.5 MMOL/L (3.5-5.1); PTH INTACT 55.9 PG/ML (18.5-88.0); SODIUM LEVEL 139 MMOL/L (136-145); TOTAL PROTEIN 6.9 G/DL (5.7-8.2); TRIGLYCERIDES LEVEL 182 MG/DL (<150)
[2022-03-06 13:50] LABS: FREE T4 1.12 NG/DL (0.89-1.76); THYROID STIMULATING HORMONE 3.939 uIU/ML (0.55-4.78)
[2022-03-06 13:51] LABS: TOTAL 25(OH) VITAMIN D 28.6 NG/ML (20.0-100.0)
[2022-03-06 16:16] LABS: HEMOGLOBIN A1c 5.1 % (4.0-6.0)
== END ==
LOC: M PLALAB 11:01
PROVIDERS: ATTEND Family Medicine
DX: E55.9 Vitamin D deficiency, unspecified (principal); E78.2 Mixed hyperlipidemia; R73.01 Impaired fasting glucose

== ENCOUNTER → 2022-05-01 | Outpatient (CLI) | payer BC, MEDICARE | LOC: M CARPUL 13:39 | PROVIDERS: ATTEND Family Medicine | DX: R06.09 Other forms of dyspnea (principal); M32.9 Systemic lupus erythematosus, unspecified ==

== ENCOUNTER → 2022-05-23 | Outpatient (CLI) | payer BC, MEDICARE ==
[2022-05-23 16:02] LABS: BASO % 0.4 % (0.0-1.0); EOS # 0.1 10^3/uL (0.0-0.5); HEMATOCRIT 40.5 % (36.0-47.0); HEMOGLOBIN 12.9 g/dl (12.0-15.5); MEAN CORPUSCULAR HEMOGLOBIN 31.3 pg (27.0-33.0); MEAN CORPUSCULAR HGB CONC 31.9 g/dl (32.0-36.5); MEAN CORPUSCULAR VOLUME 98.3 fl (80.0-96.0); MONO # 0.6 10^3/uL (0.0-0.8); MONO % 8.8 % (2.0-8.0); NEUTROPHILS # 4.1 10^3/uL (1.5-8.5); NEUTROPHILS % 60.5 % (36.0-66.0); PLATELET COUNT, AUTOMATED 190 10^3/uL (150-450); RED BLOOD COUNT 4.12 10^6/uL (4.00-5.40); WHITE BLOOD COUNT 6.8 10^3/uL (4.0-10.0)
[2022-05-23 16:25] LABS: TOTAL PROTEIN,RANDOM URINE 9.1 MG/DL (0.0-14.0)
[2022-05-23 16:28] LABS: CREATININE,RANDOM URINE 58.9 MG/DL
[2022-05-23 16:31] LABS: FREE T4 1.11 NG/DL (0.89-1.76)
[2022-05-23 16:32] LABS: FERRITIN 39.4 NG/ML (7.3-270.7); THYROID STIMULATING HORMONE 2.303 uIU/ML (0.55-4.78)
[2022-05-23 16:33] LABS: COMPLEMENT C3 121.9 MG/DL (90.0-170.0)
== END ==
LOC: M PLALAB 11:42
PROVIDERS: ATTEND Family Medicine
DX: M19.041 Primary osteoarthritis, right hand (principal); M19.042 Primary osteoarthritis, left hand; M67.40 Ganglion, unspecified site

== ENCOUNTER → 2022-06-14 | Outpatient (CLI) | payer BC, MEDICARE ==
[2022-06-14 13:59] LABS: ALBUMIN 3.8 G/DL (3.2-5.2); ALKALINE PHOSPHATASE 61 U/L (46-116); ALT/SGPT 14 U/L (7.0-40); AST/SGOT 18 U/L (<34); BILIRUBIN,TOTAL 0.3 MG/DL (0.3-1.2); BLOOD UREA NITROGEN 13 MG/DL (9-23); CALCIUM LEVEL 9.1 MG/DL (8.3-10.6); CARBON DIOXIDE LEVEL 31 MMOL/L (20-31); CHLORIDE LEVEL 104 MMOL/L (98-107); CREATININE FOR GFR 0.68 MG/DL (0.55-1.30); GLOMERULAR FILTRATION RATE > 60.0 (>45); GLUCOSE, FASTING 93 MG/DL (74-106); POTASSIUM SERUM 4.4 MMOL/L (3.5-5.1); SODIUM LEVEL 142 MMOL/L (136-145); TOTAL PROTEIN 6.8 G/DL (5.7-8.2)
== END ==
LOC: M PLALAB 10:03
PROVIDERS: ATTEND Family Medicine
DX: I10 Essential (primary) hypertension (principal)

== ENCOUNTER → 2022-06-20 | Outpatient (CLI) | payer BC, MEDICARE | LOC: M WHC 14:32 | PROVIDERS: ATTEND Family Medicine | DX: Z12.31 Encounter for screening mammogram for malignant neoplasm of breast (principal) ==

== ENCOUNTER → 2022-06-23 | Outpatient (CLI) | payer BC, MEDICARE ==
[~2022-06-23] MED LIST changes: +PROHANCE 279.3MG/ML 15ML VIAL ONE; +PROHANCE 279.3MG/ML 5ML VIAL ONE
== END ==
LOC: M PLAIMG 10:29
PROVIDERS: ATTEND Family Medicine
DX: M67.40 Ganglion, unspecified site (principal)
CPT/HCPCS: 73220; A9576

== ENCOUNTER → 2022-06-27 | Outpatient (CLI) | payer BC, MEDICARE ==
[~2022-06-27] MED LIST changes: -PROHANCE 279.3MG/ML 15ML VIAL ONE; -PROHANCE 279.3MG/ML 5ML VIAL ONE
== END ==
LOC: M CARPUL 08:12
PROVIDERS: ATTEND Family Medicine
DX: R06.09 Other forms of dyspnea (principal)

== ENCOUNTER → 2022-11-14 | Outpatient (REF) | payer MEDICARE, BC ==
[~2022-11-14] MED LIST changes: -HYDR200T3 PO; +HYDR200T46 PO; -ROSU20TA5 PO; +ROSU20TA61 PO
[2022-11-14 17:55] LABS: C REACTIVE PROTEIN QUANTITATIV < 0.40 MG/DL (<1.0)
[2022-11-14 17:56] LABS: ALBUMIN 3.8 G/DL (3.2-5.2); ALKALINE PHOSPHATASE 69 U/L (46-116); ALT/SGPT 12 U/L (7.0-40); AST/SGOT 11 U/L (<34); BILIRUBIN,TOTAL 0.5 MG/DL (0.3-1.2); BLOOD UREA NITROGEN 13 MG/DL (9-23); CALCIUM LEVEL 8.9 MG/DL (8.3-10.6); CARBON DIOXIDE LEVEL 28 MMOL/L (20-31); CHLORIDE LEVEL 104 MMOL/L (98-107); GLOMERULAR FILTRATION RATE > 60.0 (>45); GLUCOSE, FASTING 83 MG/DL (74-106); SODIUM LEVEL 140 MMOL/L (136-145)
[2022-11-14 17:58] LABS: FREE T4 1.09 NG/DL (0.89-1.76)
[2022-11-14 17:59] LABS: VITAMIN B12 LEVEL 277 PG/ML (211-911)
[2022-11-14 18:30] LABS: BASO % 0.5 % (0.0-1.0); EOS # 0.1 10^3/uL (0.0-0.5); EOS % 1.6 % (0.0-3.0); HEMATOCRIT 39.3 % (36.0-47.0); HEMATOCRIT 39.5 % (36.0-47.0); HEMOGLOBIN 12.5 g/dl (12.0-15.5); LYMPH # 2.1 10^3/uL (1.5-5.0); LYMPH % 28.3 % (24.0-44.0); MEAN CORPUSCULAR HEMOGLOBIN 30.5 pg (27.0-33.0); MEAN CORPUSCULAR HGB CONC 31.6 g/dl (32.0-36.5); MEAN CORPUSCULAR VOLUME 96.3 fl (80.0-96.0); MONO # 0.7 10^3/uL (0.0-0.8); NEUTROPHILS # 4.5 10^3/uL (1.5-8.5); NEUTROPHILS % 60.3 % (36.0-66.0); PLATELET COUNT, AUTOMATED 195 10^3/uL (150-450); WHITE BLOOD COUNT 7.4 10^3/uL (4.0-10.0)
[2022-11-14 18:49] LABS: ERYTHROCYTE SEDIMENTATION RATE 25 mm/hr (0-30)
== END ==
LOC: M SFHCPLAZ 11:33
PROVIDERS: ATTEND Family Medicine
DX: Z79.01 Long term (current) use of anticoagulants (principal); E07.9 Disorder of thyroid, unspecified

== ENCOUNTER → 2022-11-16 | Outpatient (REF) | payer MEDICARE, BC | LOC: M SFHCPLAZ 10:00 | PROVIDERS: ATTEND Family Medicine | DX: Z79.01 Long term (current) use of anticoagulants (principal); Z53.9 Procedure and treatment not carried out, unspecified reason ==

== ENCOUNTER → 2023-04-30 | Outpatient (CLI) | payer BC, MEDICARE ==
[2023-04-30 13:31] LABS: APPEARANCE, URINE CLEAR (CLEAR); BACTERIA, URINE AUTO 1+ (NEGATIVE); BASO % 0.6 % (0.0-1.0); BILIRUBIN, URINE AUTO NEGATIVE (NEGATIVE); BLOOD, URINE BLOOD NEGATIVE (NEGATIVE); COLOR, URINE STRAW (YELLOW); EOS # 0.1 10^3/uL (0.0-0.5); EOS % 1.3 % (0.0-3.0); GLUCOSE, URINE (UA) AUTO NEGATIVE (NEGATIVE); HEMATOCRIT 41.6 % (36.0-47.0); KETONE, URINE AUTO NEGATIVE (NEGATIVE); LEUKOCYTE ESTERASE, URINE AUTO NEGATIVE (NEGATIVE); LYMPH # 1.8 10^3/uL (1.5-5.0); LYMPH % 25.9 % (24.0-44.0); MEAN CORPUSCULAR HEMOGLOBIN 30.4 pg (27.0-33.0); MEAN CORPUSCULAR HGB CONC 31.3 g/dl (32.0-36.5); MEAN CORPUSCULAR VOLUME 97.2 fl (80.0-96.0); MONO # 0.6 10^3/uL (0.0-0.8); MONO % 8.3 % (2.0-8.0); NEUTROPHILS # 4.5 10^3/uL (1.5-8.5); NEUTROPHILS % 63.6 % (36.0-66.0); NITRITE, URINE AUTO NEGATIVE (NEGATIVE); PLATELET COUNT, AUTOMATED 242 10^3/uL (150-450); PROTEIN, URINE AUTO NEGATIVE (NEGATIVE); RBC, URINE AUTO 1 /HPF (0-3); RED BLOOD COUNT 4.28 10^6/uL (4.00-5.40); SPECIFIC GRAVITY URINE AUTO 1.006 (1.002-1.035); SQUAMOUS EPITHELIAL CELL UR AU 0 /HPF (0-6); UROBILINOGEN, URINE AUTO 0.2 mg/dL (0.0-2.0); WBC, URINE AUTO 0 /HPF (0-3); WHITE BLOOD COUNT 7.1 10^3/uL (4.0-10.0)
[2023-04-30 13:47] LABS: ALBUMIN 3.7 G/DL (3.2-5.2); ALKALINE PHOSPHATASE 76 U/L (46-116); ALT/SGPT 14 U/L (7.0-40); AST/SGOT 16 U/L (<34); BILIRUBIN,TOTAL 0.4 MG/DL (0.3-1.2); BLOOD UREA NITROGEN 11 MG/DL (9-23); CALCIUM LEVEL 9.2 MG/DL (8.3-10.6); CARBON DIOXIDE LEVEL 31 MMOL/L (20-31); CHLORIDE LEVEL 106 MMOL/L (98-107); CHOLESTEROL LEVEL 219 MG/DL (<200); CHOLESTEROL RISK RATIO 5.26 (<5); CREATININE FOR GFR 0.74 MG/DL (0.55-1.30); GLOMERULAR FILTRATION RATE > 60.0 (>45); GLUCOSE, FASTING 94 MG/DL (74-106); HDL CHOLESTEROL 41.6 MG/DL (>40); LDL CHOLESTEROL 130.2 MG/DL (<100); NON-HDL-C 177.4 MG/DL; POTASSIUM SERUM 4.4 MMOL/L (3.5-5.1); SODIUM LEVEL 141 MMOL/L (136-145); TOTAL PROTEIN 6.9 G/DL (5.7-8.2); TRIGLYCERIDES LEVEL 236 MG/DL (<150)
[2023-04-30 13:48] LABS: PTH INTACT 77.8 PG/ML (18.5-88.0)
[2023-04-30 13:49] LABS: VITAMIN B12 LEVEL 517 PG/ML (211-911)
[2023-04-30 13:50] LABS: FERRITIN 45.2 NG/ML (7.3-270.7); TOTAL 25(OH) VITAMIN D 28.2 NG/ML (20.0-100.0)
== END ==
LOC: M PLALAB 11:12
PROVIDERS: ATTEND Family Medicine
DX: Z79.01 Long term (current) use of anticoagulants (principal)

== ENCOUNTER 2023-08-02 16:12 | Emergency (ER) | payer BC, MEDICARE ==
[~2023-08-02] VITALS: Ht 165.1 cm; Wt 83.0 kg
[2023-08-02 18:23] LABS: BLOOD UREA NITROGEN 11 MG/DL (9-23); CALCIUM LEVEL 8.6 MG/DL (8.3-10.6); CARBON DIOXIDE LEVEL 30 MMOL/L (20-31); CHLORIDE LEVEL 107 MMOL/L (98-107); CREATININE FOR GFR 0.77 MG/DL (0.55-1.30); GLOMERULAR FILTRATION RATE > 60.0 (>45); GLUCOSE, FASTING 91 MG/DL (74-106); POTASSIUM SERUM 4.1 MMOL/L (3.5-5.1); SODIUM LEVEL 141 MMOL/L (136-145)
[2023-08-02] MEDS: NS 1,000 ML IV SCH (19:00)
[2023-08-02] MEDS: amLODIPine 5 MG TAB PO ONE (19:00)
[2023-08-02 19:19] LABS: BASO % 0.6 % (0.0-1.0); EOS # 0.1 10^3/uL (0.0-0.5); EOS % 1.4 % (0.0-3.0); HEMATOCRIT 39.9 % (36.0-47.0); HEMOGLOBIN 12.9 g/dl (12.0-15.5); LYMPH # 1.7 10^3/uL (1.5-5.0); LYMPH % 25.6 % (24.0-44.0); MEAN CORPUSCULAR HEMOGLOBIN 31.4 pg (27.0-33.0); MEAN CORPUSCULAR HGB CONC 32.3 g/dl (32.0-36.5); MEAN CORPUSCULAR VOLUME 97.1 fl (80.0-96.0); MONO # 0.7 10^3/uL (0.0-0.8); MONO % 10.1 % (2.0-8.0); NEUTROPHILS # 4.1 10^3/uL (1.5-8.5); NEUTROPHILS % 62.1 % (36.0-66.0); PLATELET COUNT, AUTOMATED 186 10^3/uL (150-450); RED BLOOD COUNT 4.11 10^6/uL (4.00-5.40); WHITE BLOOD COUNT 6.7 10^3/uL (4.0-10.0)
[2023-08-02 19:45] LABS: INR 1.18; PARTIAL THROMBOPLASTIN TIME 31.7 SECONDS (24.8-34.2); PROTHROMBIN TIME 14.7 SECONDS (12.5-14.5)
[2023-08-02 19:57] LABS: C REACTIVE PROTEIN QUANTITATIV < 0.40 MG/DL (<1.0)
[2023-08-02 19:59] LABS: ALKALINE PHOSPHATASE 76 U/L (46-116); ALT/SGPT 21 U/L (7.0-40); AST/SGOT 26 U/L (<34); BILIRUBIN,DIRECT < 0.1 MG/DL (<0.4); BILIRUBIN,TOTAL 0.2 MG/DL (0.3-1.2); BLOOD UREA NITROGEN 10 MG/DL (9-23); CALCIUM LEVEL 8.8 MG/DL (8.3-10.6); CARBON DIOXIDE LEVEL 29 MMOL/L (20-31); CHLORIDE LEVEL 105 MMOL/L (98-107); CK-MB VALUE MASS < 1.0 NG/ML (<3.6); CREATININE FOR GFR 0.73 MG/DL (0.55-1.30); GLOMERULAR FILTRATION RATE > 60.0 (>45); GLUCOSE, FASTING 89 MG/DL (74-106); POTASSIUM SERUM 4.3 MMOL/L (3.5-5.1); SODIUM LEVEL 140 MMOL/L (136-145)
[2023-08-02 20:08] LABS: CPK CREATINE PHOSPHOKINASE 93 U/L (34-145); MB/CK RELATIVE INDEX 1.07 (< OR =4)
[2023-08-02] MEDS: KETOROLAC 30 MG/ML 1ML VIAL IV ONE (20:37)
[2023-08-02 20:46] VITALS: BP 196/82
[2023-08-02] MEDS: hydrALAZINE 20MG/ML 1ML VIAL IV ONE (20:46)
[2023-08-02 21:46] VITALS: TEMP 97
[2023-08-02 22:00] VITALS: BP 156/70
[2023-08-02 22:01] VITALS: O2SAT 98
[2023-08-02] MEDS ORDERED: KETO10TAB PO (22:11)
[2023-08-02] MEDS ORDERED: AMLO1TAB25 PO (22:11)
== END 2023-08-02 23:05 | disposition home or self-care (01) ==
LOC: M ED 16:12
DX: I16.0 Hypertensive urgency (principal); G43.909 Migraine, unspecified, not intractable, without status migrainosus; Z88.8 Allergy status to other drugs, medicaments and biological substances; Z79.810 Long term (current) use of selective estrogen receptor modulators (SERMs); Z79.899 Other long term (current) drug therapy
CPT/HCPCS: 70450; 80048; 80076; 82550; 82553; 84484; 85025; 85610; 85730; 86140; 93005; 93041; 94760; 96361; 96374; 96375; 99285; J0360; J1885

== ENCOUNTER → 2023-09-28 | Outpatient (CLI) | payer BC, MEDICARE ==
[~2023-09-28] MED LIST changes: +AMLO1TAB25 PO; +KETO10TAB PO
[2023-09-28 17:12] LABS: BASO # 0.1 10^3/uL (0.0-0.2); BASO % 0.7 % (0.0-1.0); EOS # 0.1 10^3/uL (0.0-0.5); HEMATOCRIT 39.8 % (36.0-47.0); HEMOGLOBIN 12.8 g/dl (12.0-15.5); LYMPH # 1.8 10^3/uL (1.5-5.0); LYMPH % 24.9 % (24.0-44.0); MEAN CORPUSCULAR HEMOGLOBIN 30.7 pg (27.0-33.0); MEAN CORPUSCULAR HGB CONC 32.2 g/dl (32.0-36.5); MEAN CORPUSCULAR VOLUME 95.4 fl (80.0-96.0); MONO # 0.7 10^3/uL (0.0-0.8); MONO % 10.4 % (2.0-8.0); NEUTROPHILS # 4.3 10^3/uL (1.5-8.5); NEUTROPHILS % 61.7 % (36.0-66.0); PLATELET COUNT, AUTOMATED 228 10^3/uL (150-450); RED BLOOD COUNT 4.17 10^6/uL (4.00-5.40)
[2023-09-28 17:35] LABS: C REACTIVE PROTEIN QUANTITATIV < 0.40 MG/DL (<1.0)
[2023-09-28 17:37] LABS: ALBUMIN 3.8 G/DL (3.2-5.2); ALKALINE PHOSPHATASE 82 U/L (46-116); ALT/SGPT 19 U/L (7.0-40); AST/SGOT 16 U/L (<34); BILIRUBIN,TOTAL 0.4 MG/DL (0.3-1.2); BLOOD UREA NITROGEN 12 MG/DL (9-23); CALCIUM LEVEL 9.1 MG/DL (8.3-10.6); CARBON DIOXIDE LEVEL 32 MMOL/L (20-31); CHLORIDE LEVEL 101 MMOL/L (98-107); CREATININE FOR GFR 0.88 MG/DL (0.55-1.30); GLOMERULAR FILTRATION RATE > 60.0 (>45); GLUCOSE, FASTING 93 MG/DL (74-106); SODIUM LEVEL 138 MMOL/L (136-145); TOTAL PROTEIN 6.9 G/DL (5.7-8.2)
[2023-09-28 17:44] LABS: ERYTHROCYTE SEDIMENTATION RATE 54 mm/hr (0-30)
[2023-10-02 12:12] LABS: QuantiFERON-TB Gold Plus NEGATIVE (NEGATIVE)
== END ==
LOC: M PLALAB 14:54
PROVIDERS: ATTEND Student in an Organized Health Care Education/Training Program
DX: M32.9 Systemic lupus erythematosus, unspecified (principal); M19.041 Primary osteoarthritis, right hand; M19.042 Primary osteoarthritis, left hand

== ENCOUNTER → 2023-10-01 | Outpatient (CLI) | payer BC, MEDICARE ==
[2023-10-01 12:25] LABS: BASO # 0.1 10^3/uL (0.0-0.2); BASO % 0.7 % (0.0-1.0); EOS # 0.1 10^3/uL (0.0-0.5); EOS % 1.9 % (0.0-3.0); HEMATOCRIT 40.2 % (36.0-47.0); HEMOGLOBIN 13.2 g/dl (12.0-15.5); LYMPH % 27.5 % (24.0-44.0); MEAN CORPUSCULAR HEMOGLOBIN 30.8 pg (27.0-33.0); MEAN CORPUSCULAR HGB CONC 32.8 g/dl (32.0-36.5); MEAN CORPUSCULAR VOLUME 93.9 fl (80.0-96.0); MONO # 0.7 10^3/uL (0.0-0.8); MONO % 10.3 % (2.0-8.0); NEUTROPHILS # 4.3 10^3/uL (1.5-8.5); NEUTROPHILS % 59.3 % (36.0-66.0); PLATELET COUNT, AUTOMATED 257 10^3/uL (150-450); RED BLOOD COUNT 4.28 10^6/uL (4.00-5.40); WHITE BLOOD COUNT 7.2 10^3/uL (4.0-10.0)
[2023-10-01 12:37] LABS: INR 3.51; PARTIAL THROMBOPLASTIN TIME 59.9 SECONDS (24.8-34.2); PROTHROMBIN TIME 33.9 SECONDS (12.5-14.5)
[2023-10-01 12:49] LABS: HEMOGLOBIN A1c 5.4 % (4.0-6.0)
[2023-10-01 12:58] LABS: ALBUMIN 3.9 G/DL (3.2-5.2); ALKALINE PHOSPHATASE 86 U/L (46-116); ALT/SGPT 17 U/L (7.0-40); AST/SGOT 16 U/L (<34); BILIRUBIN,TOTAL 0.5 MG/DL (0.3-1.2); BLOOD UREA NITROGEN 11 MG/DL (9-23); CALCIUM LEVEL 9.3 MG/DL (8.3-10.6); CARBON DIOXIDE LEVEL 32 MMOL/L (20-31); CHLORIDE LEVEL 102 MMOL/L (98-107); CHOLESTEROL LEVEL 287 MG/DL (<200); CHOLESTEROL RISK RATIO 6.68 (<5); CREATININE FOR GFR 0.77 MG/DL (0.55-1.30); GLOMERULAR FILTRATION RATE > 60.0 (>45); GLUCOSE, FASTING 106 MG/DL (74-106); HDL CHOLESTEROL 42.9 MG/DL (>40); LDL CHOLESTEROL 207.5 MG/DL (<100); NON-HDL-C 244.1 MG/DL; POTASSIUM SERUM 3.5 MMOL/L (3.5-5.1); SODIUM LEVEL 138 MMOL/L (136-145); TOTAL PROTEIN 7.1 G/DL (5.7-8.2); TRIGLYCERIDES LEVEL 183 MG/DL (<150)
[2023-10-01 13:00] LABS: FERRITIN 62.6 NG/ML (7.3-270.7)
== END ==
LOC: M WUC 11:13
PROVIDERS: ATTEND Family Medicine
DX: E53.8 Deficiency of other specified B group vitamins (principal); I10 Essential (primary) hypertension; R73.01 Impaired fasting glucose

== ENCOUNTER → 2023-11-01 | Outpatient (REF) | payer BC, MEDICARE | LOC: M SFHCPLAZ 18:35 | PROVIDERS: ATTEND Family Medicine | DX: E53.8 Deficiency of other specified B group vitamins (principal); I10 Essential (primary) hypertension; E78.2 Mixed hyperlipidemia; R73.01 Impaired fasting glucose; Z53.9 Procedure and treatment not carried out, unspecified reason ==

== ENCOUNTER → 2024-01-21 | Outpatient (CLI) | payer BC, MEDICARE ==
[~2024-01-21] MED LIST changes: -ROSU20TA61 PO; +ROSU20TA86 PO
== END ==
LOC: M WHC 13:36
PROVIDERS: ATTEND Family Medicine
DX: Z12.31 Encounter for screening mammogram for malignant neoplasm of breast (principal); M81.0 Age-related osteoporosis without current pathological fracture

== ENCOUNTER → 2024-01-21 | Outpatient (CLI) | payer BC, MEDICARE ==
[2024-01-21 17:19] LABS: BASO # 0.1 10^3/uL (0.0-0.2); BASO % 0.5 % (0.0-1.0); EOS # 0.3 10^3/uL (0.0-0.5); EOS % 2.6 % (0.0-3.0); HEMATOCRIT 39.5 % (36.0-47.0); HEMOGLOBIN 12.8 g/dl (12.0-15.5); LYMPH # 2.8 10^3/uL (1.5-5.0); LYMPH % 27.2 % (24.0-44.0); MEAN CORPUSCULAR HEMOGLOBIN 30.3 pg (27.0-33.0); MEAN CORPUSCULAR HGB CONC 32.4 g/dl (32.0-36.5); MEAN CORPUSCULAR VOLUME 93.4 fl (80.0-96.0); MONO # 0.9 10^3/uL (0.0-0.8); MONO % 8.6 % (2.0-8.0); NEUTROPHILS # 6.3 10^3/uL (1.5-8.5); NEUTROPHILS % 60.8 % (36.0-66.0); PLATELET COUNT, AUTOMATED 274 10^3/uL (150-450); RED BLOOD COUNT 4.23 10^6/uL (4.00-5.40); WHITE BLOOD COUNT 10.3 10^3/uL (4.0-10.0)
[2024-01-21 17:20] LABS: INR 1.76; PROTHROMBIN TIME 20.7 SECONDS (12.5-14.5)
[2024-01-21 17:36] LABS: HEMOGLOBIN A1c 5.4 % (4.0-6.0)
[2024-01-21 17:40] LABS: CREATININE, URINE 75.2 MG/DL; MALB URINE SIEMENS < 3.0 MG/L; MAU/CREAT RATIO 3.9 MCG/MG (0.0-30.0)
[2024-01-21 17:45] LABS: ALBUMIN 3.9 G/DL (3.2-5.2); ALKALINE PHOSPHATASE 85 U/L (35-104); ALT/SGPT 15 U/L (7.0-40); AST/SGOT 18 U/L (<34); BILIRUBIN,TOTAL 0.4 MG/DL (0.3-1.2); BLOOD UREA NITROGEN 15 MG/DL (9-23); CALCIUM LEVEL 9.7 MG/DL (8.3-10.6); CARBON DIOXIDE LEVEL 31 MMOL/L (20-31); CHLORIDE LEVEL 98 MMOL/L (98-107); CHOLESTEROL LEVEL 168 MG/DL (<200); CHOLESTEROL RISK RATIO 3.73 (<5); CREATININE FOR GFR 0.86 MG/DL (0.55-1.30); FERRITIN 74.9 NG/ML (7.3-270.7); GLOMERULAR FILTRATION RATE > 60.0 (>45); GLUCOSE, FASTING 89 MG/DL (74-106); LDL CHOLESTEROL 83.8 MG/DL (<100); POTASSIUM SERUM 3.3 MMOL/L (3.5-5.1); SODIUM LEVEL 137 MMOL/L (136-145); TOTAL PROTEIN 7.2 G/DL (5.7-8.2); TRIGLYCERIDES LEVEL 196 MG/DL (<150)
[2024-01-21 17:46] LABS: FREE T4 1.36 NG/DL (0.89-1.76)
== END ==
LOC: M PLALAB 15:07
PROVIDERS: ATTEND Family Medicine
DX: R73.01 Impaired fasting glucose (principal); I10 Essential (primary) hypertension; E53.8 Deficiency of other specified B group vitamins; E78.2 Mixed hyperlipidemia; D50.9 Iron deficiency anemia, unspecified; Z79.01 Long term (current) use of anticoagulants

== ENCOUNTER → 2024-07-07 | Outpatient (CLI) | payer BC, MEDICARE ==
[2024-07-07 13:46] LABS: INR 3.91; PARTIAL THROMBOPLASTIN TIME 56.9 SECONDS (24.8-34.2)
[2024-07-07 14:20] LABS: BASO # 0.1 10^3/uL (0.0-0.2); BASO % 0.7 % (0.0-1.0); EOS # 0.1 10^3/uL (0.0-0.5); HEMATOCRIT 40.7 % (36.0-47.0); HEMOGLOBIN 12.7 g/dl (12.0-15.5); LYMPH # 1.6 10^3/uL (1.5-5.0); MEAN CORPUSCULAR HEMOGLOBIN 30.8 pg (27.0-33.0); MEAN CORPUSCULAR HGB CONC 31.2 g/dl (32.0-36.5); MEAN CORPUSCULAR VOLUME 98.5 fl (80.0-96.0); MONO # 0.6 10^3/uL (0.0-0.8); MONO % 8.9 % (2.0-8.0); NEUTROPHILS # 4.5 10^3/uL (1.5-8.5); NEUTROPHILS % 66.3 % (36.0-66.0); PLATELET COUNT, AUTOMATED 224 10^3/uL (150-450); RED BLOOD COUNT 4.13 10^6/uL (4.00-5.40); WHITE BLOOD COUNT 6.8 10^3/uL (4.0-10.0)
[2024-07-07 14:31] LABS: ALBUMIN 3.8 G/DL (3.2-5.2); BILIRUBIN,TOTAL 0.4 MG/DL (0.3-1.2); CHOLESTEROL RISK RATIO 4.21 (<5); CREATININE FOR GFR 0.95 MG/DL (0.55-1.30); FERRITIN 66.3 NG/ML (7.3-270.7); GLOMERULAR FILTRATION RATE 64.9 (>45); LDL CHOLESTEROL 88.8 MG/DL (<100); MAGNESIUM LEVEL 2.1 MG/DL (1.8-2.4); POTASSIUM SERUM 4.6 MMOL/L (3.5-5.1)
[2024-07-07 14:42] LABS: CREATININE, URINE 20.4 MG/DL; MALB URINE SIEMENS < 3.0 MG/L
== END ==
LOC: M PLALAB 10:02
PROVIDERS: ATTEND Family Medicine
DX: R73.01 Impaired fasting glucose (principal); I10 Essential (primary) hypertension; M32.9 Systemic lupus erythematosus, unspecified; E53.8 Deficiency of other specified B group vitamins

== ENCOUNTER → 2025-01-20 | Outpatient (CLI) | payer MEDICARE ==
[2025-01-20 13:11] LABS: BASO # 0.1 10^3/uL (0.0-0.2); BASO % 0.8 % (0.0-1.0); EOS # 0.1 10^3/uL (0.0-0.5); EOS % 1.1 % (0.0-3.0); LYMPH # 1.5 10^3/uL (1.5-5.0); LYMPH % 23.1 % (24.0-44.0); MONO # 0.6 10^3/uL (0.0-0.8); MONO % 9.3 % (2.0-8.0); NEUTROPHILS # 4.1 10^3/uL (1.5-8.5); NEUTROPHILS % 65.4 % (36.0-66.0); PLATELET COUNT, AUTOMATED 251 10^3/uL (150-450)
[2025-01-20 13:24] LABS: ESTIMATED AVERAGE GLUCOSE 105.0 MG/DL (60-110)
[2025-01-20 13:33] LABS: INR 1.21
[2025-01-20 13:38] LABS: CREATININE, URINE 69.3 MG/DL
[2025-01-20 13:39] LABS: MALB URINE SIEMENS < 3.0 MG/L
[2025-01-20 13:40] LABS: C REACTIVE PROTEIN QUANTITATIV < 0.50 MG/DL (<1.0)
[2025-01-20 13:41] LABS: ALT/SGPT 15 U/L (7.0-40); AST/SGOT 20 U/L (<34); CALCIUM LEVEL 9.5 MG/DL (8.3-10.6); CARBON DIOXIDE LEVEL 30 MMOL/L (20-31); CHLORIDE LEVEL 103 MMOL/L (98-107); CHOLESTEROL LEVEL 162 MG/DL (<200); CHOLESTEROL RISK RATIO 4.03 (<5); CREATININE FOR GFR 0.89 MG/DL (0.55-1.30); GLOMERULAR FILTRATION RATE 69.7 (>39); LDL CHOLESTEROL 85.1 MG/DL (<100); NON-HDL-C 121.9 MG/DL; POTASSIUM SERUM 4.3 MMOL/L (3.5-5.1); SODIUM LEVEL 140 MMOL/L (136-145); TRIGLYCERIDES LEVEL 184 MG/DL (<150)
[2025-01-27 16:52] LABS: ALPHA 2-MACROGLOBULINS,QN 216 mg/dL (106-279); ALT (SGPT) P5P 10 U/L (6-29); APOLIPOPROTEIN A-1 165 mg/dL (101-198); FIBROSIS SCORE 0.14; FIBROSIS STAGE NO FIBROSIS (F0); GGT 10 U/L (3-65); HAPTOGLOBIN 168 mg/dL (43-212); NECROINFLAM ACT GRADE NO ACTIVITY (A0); NECROINFLAM ACT SCORE 0.02
== END ==
LOC: M PLALAB 10:49
PROVIDERS: ATTEND Family Medicine
DX: E53.8 Deficiency of other specified B group vitamins (principal); I10 Essential (primary) hypertension; E78.2 Mixed hyperlipidemia; R73.01 Impaired fasting glucose; M32.9 Systemic lupus erythematosus, unspecified; R29.898 Other symptoms and signs involving the musculoskeletal system; K75.81 Nonalcoholic steatohepatitis (NASH); M47.817 Spondylosis without myelopathy or radiculopathy, lumbosacral region; M43.16 Spondylolisthesis, lumbar region